=== PATIENT | male | born 1985 | race Caucasian/White ===

== ENCOUNTER 2019-02-03 05:33 | Day surgery (SDC) | payer OTHER ==
[~2019-02-03] VITALS: Ht 182.9 cm; Wt 76.7 kg
[~2019-02-03 05:33] MED LIST: OMEPRAZOLE 20 M20 M1 PO; ZYRTEC10 M5 PO
[2019-02-03 06:22] VITALS: BP 124/67
[2019-02-03] MEDS ORDERED: OXYCODONE HCL 55 MG PO (07:28)
[2019-02-03] MEDS ORDERED: MIRALAX17 GM PO (09:27)
[2019-02-03] MEDS ORDERED: ACETAMINOPHEN325 M1 PO (09:27)
[2019-02-03] MEDS ORDERED: COLACE 100 MG100 MG PO (09:27)
[2019-02-03] MEDS ORDERED: IBUPROFEN 200200 M1 PO (09:27)
== END 2019-02-03 10:35 | disposition home or self-care (01) ==
LOC: TBA 05:33 → OR 05:33 → TBA 05:35 → OR 09:58
DX: K40.90 Unilateral inguinal hernia, without obstruction or gangrene, not specified as recurrent (principal); K42.9 Umbilical hernia without obstruction or gangrene; K21.9 Gastro-esophageal reflux disease without esophagitis; Z98.890 Other specified postprocedural states; Z79.899 Other long term (current) drug therapy; Z88.0 Allergy status to penicillin; Z88.8 Allergy status to other drugs, medicaments and biological substances; Z79.891 Long term (current) use of opiate analgesic
CPT/HCPCS: 50010; 50101; 50249; 50411; 50455; 50507; 50555; 50848; 50980; 52265; 52266; 53307; 53310; 53314; 54022; 54118; 56462; 56525; 56526; 56530; 56531; 62110; 62900; 70005